=== PATIENT | female | born 1985 | race Caucasian/White ===

== ENCOUNTER 2019-09-27 21:15 | Outpatient (CLI) | payer BC, OTHER ==
[2019-09-27 21:39] VITALS: BP 154/98; PULSE 100; RESP 16; TEMP 98.2
[2019-09-27 21:46] LABS: Appearance,Urine Clear (Clear); Bilirubin,Urine Negative (Negative); Blood,Urine Negative (Negative); Color,Urine Light Yellow; Glucose,Urine (UA) Negative (Negative); Ketones,Urine Negative (Negative); Leukocyte Esterase,Urine Negative (Negative); Nitrite,Urine Negative (Negative); PH, Urine 7.5 (5.0-8.0); Protein,Urine Negative (Negative); Specific Gravity,Urine 1.009 (1.001-1.035); Urobilinogen,Urine <2.0 mg/dL (<2.0)
[2019-09-27 21:55] LABS: Amphetamine Screen,Urine Not Detected (NotDetected); Barbiturate Screen,Urine Not Detected (NotDetected); Benzodiazepines Screen,Urine Not Detected (NotDetected); Cocaine Screen,Urine Not Detected (NotDetected); Methadone Screen, Urine Not Detected (NotDetected); Opiate Screen,Urine Not Detected (NotDetected); Oxycodone Screen, Urine Not Detected (NotDetected); Phencyclidine Screen,Urine Not Detected (NotDetected); Tricyclic Antidepressant,Urine Not Detected (NotDetected); Urn Cannabinoid Scrn Not Detected (NotDetected)
--- NOTE | 2019-09-27 22:26 | US ---
EXAMINATION TYPE: US OB >= 14 wk fetus DATE OF EXAM: 09/27/2019 COMPARISON: None CLINICAL HISTORY: 33-year-old female no care/abdominal pain. Abdomen pain x 1 day, 10, para 4, miscarriage 5 TECHNIQUE: Transabdominal (TA) FINDINGS: GESTATIONAL AGE / DATING Physician Established: Not established yet Dates by LMP: (29 weeks/0 days) EDC: 12/13/2019 Dates by First Scan: This is 1st scan, 26 weeks 3 days EDC: 12/31/2019 SURVEY IUP: Single PLACENTA: Fundal/Posterior - 1.9 x 1.3 x 2.7cm irregular non vascular hypoechoic area seen within fun hannah portion of placenta PREVIA: No Previa PERCY: 11.9 cm, low normal CERVICAL LENGTH (transabdominal: norm > 3.0cm): 3.8 cm BIOMETRY PRESENTATION: Vertex LIE: Longitudinal BPD: 6.7 cm 26 weeks / 6 days HC: 24.5 cm 26 weeks / 4 days AC: 23.2 cm 27 weeks / 4 days FL: 4.9 cm 26 weeks / 3 days ESTIMATED WEIGHT IN GRAMS: 1013 grams ESTIMATED WEIGHT IN LBS/OZ: 2 lbs. 4 oz. WEIGHT PERCENTAGE BASED ON ESTABLISHED DATES: <3% HC/AC: 1.06 Normal FL/AC: 21.05 Normal HEART RATE: 152 bpm RHYTHM: Normal [employer] NOTES: Viable single IUP measuring 26 week 3 days with a heart rate of 152 and an estimat ed delivery date of 12/31/2019. IMPRESSION: 1. Single live intrauterine with estimated gestational age of 29 weeks 0 days by LMP. Curre nt ultrasound biometry is smaller and discordant (26 weeks 3 days) placing the gestation at <3% for w eight. Correlate for accuracy of recall of LMP. Follow-up to assess for appropriate interval growth a s indicated. Normal HC/AC argues against brain sparing physiology. 2. A 2.7 x 1.9 cm hypoechoic area within the fundal portion of the placenta could represent a small i ntraplacental bleed or chorioangioma. This should also be reassessed at follow-up. 3. Note that the anatomy was not assessed on this emergent exam.
[2019-09-27 22:34] LABS: Protein/Creatinine Ratio,Urine 0.359
[2019-09-27 23:02] LABS: Basophils % (A) 0 %; Eosinophils # (A) 0.3 k/uL (0-0.7); Eosinophils % (A) 2 %; HCT 37.1 % (34.0-46.0); HGB 12.9 gm/dL (11.4-16.0); Lymphocytes # (A) 3.1 k/uL (1.0-4.8); Lymphocytes % (A) 24 %; MCH 31.6 pg (25.0-35.0); MCHC 34.7 g/dL (31.0-37.0); MCV 90.9 fL (80.0-100.0); Mean Platelet Volume 8.1; Monocytes # (A) 0.6 k/uL (0-1.0); Monocytes % (A) 5 %; Neutrophils # (A) 8.6 k/uL (1.3-7.7); Neutrophils % (A) 67 %; Platelet Count 306 k/uL (150-450); RBC 4.09 m/uL (3.80-5.40); RDW 12.5 % (11.5-15.5); WBC 12.8 k/uL (3.8-10.6)
[2019-09-27 23:16] LABS: ALT 11 U/L (4-34); AST 20 U/L (14-36); African American GFR (CKD) >90 (>60 ml/min/1.73 sqM); Blood Urea Nitrogen 14 mg/dL (7-17); Glucose 79 mg/dL (74-99); LDH 465 U/L (313-618); Non-African American GFR(CKD) >90 (>60 ml/min/1.73 sqM); Uric Acid 3.6 mg/dL (3.7-7.4)
--- NOTE | 2019-09-27 23:37 | P.TRANS ---
Providers Expected date of discharge: 09/27/19 Attending physician: Teo Monterroso Primary care physician: Stated None Hospital Course: Tika is seen and evaluated. She relates that she has had some abdominal pain this afternoon and this evening which was relatively significant. It began after chasing around her 3-year-old daughter and some vacuuming. It was noted on admission that she had some elevated blood pressures 140s over 90s high 130s over 80s consistent with possible gestational hypertension versus preeclampsia. In reviewing her records from [place] where she is a patient, is noted she had several blood pressures that were in the 150/107-109 range that it seems that they felt were due to her methamphetamine use. She has continued to have mildly elevated blood pressures even after that at [place]. They did treat her with 2 doses of lisinopril which is contraindicated in so it is unclear why they chose that medication. Her blood pressure apparently went down a little bit after that but they have had sporadic checks on her blood pressure since that time. She relates that she was supposed up and check twice daily but only 2 or 3 other blood pressures have been noted in the past week and all are mildly elevated She does have an appointment with [facility] for her central care on 4:15. Due to risk of some preeclampsia we did do preeclamptic labs. The majority of the labs were normal. AST ALT/platelets and LDH were all normal. Her protein creatinine ratio was elevated at 0.35. That said her protein in her urine was negative. There would be to options the situation one would be to refer her to high risk Center she is only 28 weeks the second would be to run a 24-hour urine and clarify her protein in her urine. Before discussing this with the patient however, an ultrasound was done showing growth in approximately the 3rd percentile or less. As this is a significant concern based on her absolute certainty of her dates and expected ovulation date I did recommend transferring her to a high risk center for evaluation and monitoring. There is essentially a category 1 tracing noted with good variability and at least 5 x 5 accelerations. Baby is moving well otherwise. Abdominal pain has completely resolved as well. Urine drug screen is negative for illicit substances. 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 She shows no swelling in her legs/hands/or face. Deep tendon reflexes ar e +2 out of 4 and she has no signs of clonus. Her abdomen is soft she is measuring small for 29 weeks area no contractions are noted on the monitor and ultrasound shows a 3.8 cm cervical length. She denies any headache, epigastric pain or visual changes and there are no other signs or symptoms of severe features consistent with preeclampsia Assessment: intrauterine at 29 weeks gestation with gestational hypertension versus mild early preeclampsia and suspected IUGR Plan: was to transfer to a tertiary care center. She has opted to sign herself out AGAINST MEDICAL ADVICE and return to [place]. She is aware of risks of damage to herself including but not limited to as well as seizures or other problems, K preeclampsia/eclampsia. There are also potential risks to the fetus including but not limited to abruption, , neurologic injuries and other potential findings. I did recommend, as she relates [facility] to [place], she have herself checked and reevaluated at [facility] once she returns home where she is to assume care next week as I'm very concerned with her well-being as well as well-being of her baby. One of the other reason she is sign herself out to go to [place] is that her daughter is actually still there and is being watched by the nurses at [place]. Her daughter is 3 years old. Her apparently is on [address], [place] pick her up as her treatment course was actually finished with them tonight anyway. They're planning to return to [place] where they are from. Patient Condition at Discharge: Stable
[2019-09-28 11:44] LABS: Hepatitis B Surface Antigen Non-Reactive (Non-Reactive)
[2019-09-30 14:02] LABS: HIV 2 AB Non-Reactive (Non-Reactive); HIV AB P24 Non-Reactive (Non-Reactive); HIV P24 AG Non-Reactive (Non-Reactive)
[2019-10-02 14:40] LABS: C. trachomatis,PCR Negative (Neg,Equiv); Chlamydia trachomatis Source Urine; N. gonorrhoeae,PCR Negative (Neg,Equiv); Neisseria Source Urine
== END 2019-09-27 22:30 | disposition left against medical advice (07) ==
LOC: FBPOP 21:15
PROVIDERS: ATTEND Obstetrics & Gynecology
DX: O16.3 Unspecified maternal hypertension, third trimester (principal); Z3A.29 29 weeks gestation of pregnancy
CPT/HCPCS: 59025; 86900; 86901; 86762; 82570; 84156; 82565; 83615; 82947; 84450; 84460; 84520; 84550; 85025; 86850; 87340; 81003; 87491; 87591; 86780; 80306; 87390; 76805; G0463; 96360; 99215